=== PATIENT | female | born 1980 | race Caucasian/White ===

== ENCOUNTER → 2016-11-01 | Outpatient (CLI) | payer MEDICAID ==
[~2016-11-01] MED LIST: HYDR-4246 PO
[2016-11-01 11:18] LABS: BASOPHILS % (AUTO) 0.3 % (0-2); EOSINOPHILS % (AUTO) 0.3 % (0-4); HCT - HEMATOCRIT 33.1 % (36-46); HGB - HEMOGLOBIN 11.3 GM/DL (12-16); LYMPHOCYTES # (AUTO) 0.4 T/MM3 (1-4.8); LYMPHOCYTES % (AUTO) 14.2 % (23-45); MEAN CORPUSCULAR HGB 33.4 UUG (26-34); MEAN CORPUSCULAR HGB CONC(MCHC 34.1 GM/DL (31-37); MEAN CORPUSCULAR VOLUME 97.9 UM3 (80-100); MEAN PLATELET VOLUME 10.3 UM3 (9.4-12.4); MONOCYTES # (AUTO) 0.3 T/MM3 (0-0.8); MONOCYTES % (AUTO) 10.9 % (0-9.0); NEUTROPHILS #(AUTO)-ABSOLUTE 2.3 T/MM3 (1.8-7.7); NEUTROPHILS % (AUTO) 74.3 % (33-66); RED BLOOD COUNT 3.38 M/MM3 (4.00-5.20)
--- NOTE | 2016-11-01 12:27 | DI ---
Indication: ITS.REASON: J01.90 Acute sinusitis; R51 ANTHONY PROCEDURE: CT HEAD W/O CONTRAST: Encounter: Initial Comparison: None Technique: Axial CT images through the head were performed without contrast. Iterative Reconstruction dose reducing technique was utilized. FINDINGS: Old frontal craniotomy with left frontal lobe encephalomalacia and a couple coarse calcifications. The ventricles are of normal size, shape, and configuration for the patient's age. There is no evidence of acute intracranial hemorrhage, midline displacement, or mass effect. The CT attenuation of the brain parenchyma is normal within the cerebellum, brain stem, and cerebral hemispheres. The tympanic cavities and mastoid air cells are free of appreciable disease. There are no definite fractures of the skull base, calvarium, or visualized portion of the midface. The paranasal sinuses are clear. IMPRESSION: 1. No CT evidence of acute intracranial abnormality or acute sinusitis. 2. Postoperative changes from prior frontal craniotomy and tumor resection. .
== END ==
LOC: IMA 10:46
PROVIDERS: ATTEND Nurse Practitioner
DX: R51 Headache (principal); Z98.890 Other specified postprocedural states; D70.1 Agranulocytosis secondary to cancer chemotherapy; J01.90 Acute sinusitis, unspecified
CPT/HCPCS: 36415; 84703; 85025

== ENCOUNTER → 2017-01-02 | Outpatient (CLI) | payer MEDICAID ==
--- NOTE | 2017-01-02 15:36 | DI ---
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 Moderate stool in the splenic flexure and left colon. No abnormally dilated small bowel appreciated. Gas is present to the sigmoid colon. Bony structures are within normal limits. Left pelvic phlebolith noted incidentally. Impression: Nonobstructive nonspecific bowel gas pattern. .
== END ==
LOC: IMA 15:12
PROVIDERS: ATTEND Internal Medicine Medical Oncology
DX: K59.00 Constipation, unspecified (principal); R14.3 Flatulence; C71.1 Malignant neoplasm of frontal lobe